=== PATIENT | male | born 1980 | race African-American/Black ===

== ENCOUNTER → 2018-01-13 10:04 | Outpatient (CLI) | payer SELFPAY | PROVIDERS: PCP Nurse Practitioner Family; Visit Provider Nurse Practitioner Family | DX: Z02.1 Encounter for pre-employment examination (principal) ==

== ENCOUNTER → 2021-07-16 19:25 | Outpatient (CLI) | payer BC, SELFPAY | PROVIDERS: Visit Provider Nurse Practitioner Family | DX: Z20.822 Contact with and (suspected) exposure to COVID-19 (principal); U07.1 COVID-19 | CPT/HCPCS: U0003 ==

== ENCOUNTER 2024-04-02 10:19 | Emergency (ER) | payer BC, SELFPAY ==
[2024-04-02 11:05] VITALS: BP 131/89; PULSE 82; RESP 19; TEMP 36.8; O2SAT 99; BMI 28.1
[2024-04-02 11:17] VITALS: BMI 28.1
--- NOTE | 2024-04-02 11:17 | XR_ITS ---
PROCEDURE INFORMATION: Exam: XR Left Ribs Exam date and time: 04/02/2024 11:49 AM Age: 43 years old Clinical indication: Injury or trauma; Fall; Rib area, left side; Blunt trauma; Additional info: Fell on concrete TECHNIQUE: Imaging protocol: Radiologic exam of the left ribs. Views: 2 views. COMPARISON: No relevant prior studies available. FINDINGS: Bones/joints: Normal. Soft tissues: Normal. IMPRESSION: No acute findings.
--- NOTE | 2024-04-02 11:18 | XR_ITS ---
PROCEDURE INFORMATION: Exam: XR Right Wrist Exam date and time: 04/02/2024 11:46 AM Age: 43 years old Clinical indication: Injury or trauma; Fall; Blunt trauma (contusions or hematomas); Wrist; Right; Additional info: Fell on concrete TECHNIQUE: Imaging protocol: Radiologic exam of the right wrist. Views: 3 or more views. COMPARISON: No relevant prior studies available. FINDINGS: Bones/joints: Normal. Soft tissues: Mild diffuse soft tissue swelling. IMPRESSION: No evidence of acute osseous injury.
--- NOTE | 2024-04-02 11:23 | EXP.UTC ---
Discharge Plan Disposition Patient Disposition: Home, Self-Care Condition: Good Prescriptions Prescriptions: No Action cetirizine 10 mg tablet 10 mg PO DAILY Patient Comments: TAKE 1 TABLET BY MOUTH ONCE DAILY Referrals Follow up/Referrals: Milena Sullivan PA [Primary Care Provider] - See instructions Activity Restrictions/Add. Instructions Additional Instructions/Restrictions: rest Ice with cold pack for 20 minutes remove may repeat for comfort every hour Rusty wrap for support and swelling no less in the shower. Be sure not too tight but not to lose either Elevate with wrist above your heart as much as possible to help reduce swelling and therefore pain Ibuprofen every 6 hours as needed for pain or inflammation. If needs something more you can take Tylenol every 4 hours as needed as long as her primary care has told he was okayed for you to take both. Follow-up immediately if new or worsening symptoms or no noticeable improvement over the next 3-5 days. call ortho Clinical Impressions Clinical Impression: Contusion of rib, Right wrist sprain Instructions Patient Instructions: DI for Rib Contusion, DI for Wrist Sprain Discharge ED Provider: Jared ([facility])[place] [facility] [place] HPI General Stated complaint: wrist and left side pain Mode of Arrival: Ambulatory Source of Information: Patient Limitations: No Limitations Time Seen by Provider: 04/02/24 11:24 Description of Symptoms (Recalled from Triage Doc. by RN): Pt was playing basket ball and fell on concrete. He is complaining of pain in ribs, and wrist. HEENT Symptoms (Recalled from RN notes): No Resp Symptoms (Recalled from RN notes): No Skin Symptoms (Recalled from RN notes): No MS Symptoms (Recalled from RN notes): Yes Functional Status (Recalled from RN notes): n/a History of Present Illness Provider Complaint: 43 yr old male presents for c/o pain in left ribs, and rt wrist. playing basket ball and fell on concrete last pm. Related Data Home Medications Medication Instructions Recorded Confirmed cetirizine 10 mg tablet 10 mg PO DAILY 12/25/19 04/02/24 Allergies Allergy/AdvReac Type Severity Reaction Status Date / Time No Known Allergies Allergy Verified 04/02/24 11:22 Worker's Comp Is this a Worker's Comp case?: No [facility] Disclaimer: The information contained in this section may have been updated after the patient was seen, as this information can be updated by other users. Social History , [employer]) Smoking Status: Never smoker second hand exposure: No alcohol intake: never substance use type: denies use current occupational status: employed Travel in the last 8 weeks: None household members: significant other housing: house ROS Obtained: Yes All systems reviewed & no additional complaints except as documented Constitutional Constitutional: Reports system reviewed and no additional complaints, except as documented Eyes Eyes: Reports system reviewed and no additional complaints, except as documented ENT Ears, Nose, Mouth, and Throat: Reports system reviewed and no additional complaints, except as documented Cardiovascular Cardiovascular: Reports system reviewed and no additional complaints, except as documented Respiratory Respiratory: Reports system reviewed and no additional complaints, except as documented Gastrointestinal Gastrointestingal: Reports system reviewed and no additional complaints, except as documented Musculoskeletal Musculoskeletal: Reports system reviewed and no additional complaints, except as documented, Reports as per HPI, Reports arthralgias and Reports limited range of motion Integumentary/Breasts Skin/Breast: Reports system reviewed and no additional complaints, except as documented Neurologic Neurologic: Reports system reviewed and no additional complaints, except as documented Endocrine Endocrine: Reports system reviewed and no additional complaints, except as documented Hematologic/Lymphatic Henatologic/Lymphatic: Reports system reviewed and no additional complaints, except as documented Allergic/Immunologic Allergic/Immunologic: Reports system reviewed and no additional complaints, except as documented Physical Exam General General appearance: alert and in no apparent distress Head Head exam: atraumatic Eye Eye exam: Present normal appearance and PERRL ENT ENT exam: Present normal exam Expanded Chest Exam Male Torso: 1. tender Respiratory Respiratory exam: Present normal lung sounds bilaterally Cardiovascular Cardiovascular exam: Present regular rate and normal rhythm Extremities Exam Extremities exam: Present normal inspection, tenderness and normal capillary refill Expanded Upper Extremity Exam Right: Hand L/R front image: 1. other (tender) Neurological Exam Neurological exam: Present alert and oriented X3 Psychiatric Psychiatric exam: Present normal affect Skin Skin exam: Present warm and intact Medical Decision Making Medical Records Medical records reviewed: Yes I reviewed the patient's medical records. Matt Inquiry Pt receiving controlled substance: No Matt was queried for this patient: No Vital Signs: 04/02/24 11:05 Temperature 98.3 F Temperature Source Oral Pulse Rate [Right Radial] 82 Respiratory Rate 19 Blood Pressure [Right Arm] 131/89 Blood Pressure Mean [Right Arm] 103 Blood Pressure Source [Right Arm] Automatic Cuff Blood Pressure Position [Right Arm] Sitting 02 Sat by Pulse Oximetry 99 Oxygen Delivery Method Room Air Orders (Tests/Meds): ORDERS Category Date Time Status Wrist XR right minimum 3 views [XR wrist RT min 3V] Exams 04/02/24 11:18 Ordered Stat XR ribs LT 2V Stat Exams 04/02/24 11:17 Ordered Radiology Data #1: Image(s): Chest Image Reviewed: Yes I have reviewed radiologist's interpretation Preliminary Findings: Normal/NAD #2: Image(s): Wrist Image Reviewed: Yes I have reviewed radiologist's interpretation Preliminary Findings: Normal/NAD
[2024-04-02 12:44] VITALS: BP 187/83; PULSE 68; RESP 22; TEMP 36.8; O2SAT 98
== END 2024-04-02 12:44 | disposition home or self-care (01) ==
PROVIDERS: Emergency Provider Nurse Practitioner Family; PCP Physician Assistant
DX: S20.212A Contusion of left front wall of thorax, initial encounter (principal); S63.501A Unspecified sprain of right wrist, initial encounter; M25.531 Pain in right wrist; R07.81 Pleurodynia; W18.39XA Other fall on same level, initial encounter; Y93.67 Activity, basketball
CPT/HCPCS: 71100; 73110; 99203; 99212; G0463